=== PATIENT | male | born 1935 | race Caucasian/White ===

== ENCOUNTER 2016-09-26 15:19 | Outpatient (CLI) | END 2016-09-26 15:20 | disposition home or self-care (01) ==

== ENCOUNTER 2016-12-30 08:00 | Outpatient (CLI) | payer MEDICARE, MEDICAID | END 2016-12-30 23:59 | disposition home or self-care (01) | DX: E11.621 Type 2 diabetes mellitus with foot ulcer (principal) ==

== ENCOUNTER 2017-03-10 08:00 | Outpatient (CLI) | payer MEDICARE, MEDICAID ==
[2017-03-11 12:27] LABS: HEMOGLOBIN A1C 0.57 g/dL
== END 2017-03-10 08:01 | disposition home or self-care (01) ==
LOC: LAB.S 08:00
PROVIDERS: ATTEND Nurse Practitioner Family
DX: E11.621 Type 2 diabetes mellitus with foot ulcer (principal)
CPT/HCPCS: 36415; 83036

== ENCOUNTER 2017-06-06 17:18 | Outpatient (CLI) | payer MEDICARE, MEDICAID | END 2017-06-06 17:19 | disposition home or self-care (01) | LOC: EMS 17:18 | PROVIDERS: ATTEND Surgery | DX: R53.1 Weakness (principal); F03.91 Unspecified dementia, unspecified severity, with behavioral disturbance | CPT/HCPCS: A0425; A0428 ==

== ENCOUNTER 2017-07-04 08:00 | Outpatient (CLI) | payer MEDICARE, MEDICAID ==
[2017-07-04 11:40] LABS: CALCIUM 8.6 mg/dL (8.5-10.3); CREATININE 3.4 mg/dL (0.6-1.2); POTASSIUM 4.8 mmol/L (3.5-5.0)
== END 2017-07-04 08:01 | disposition home or self-care (01) ==
LOC: LAB 08:00
PROVIDERS: ATTEND Internal Medicine Cardiovascular Disease
DX: I50.9 Heart failure, unspecified (principal)
CPT/HCPCS: 36415; 80048

== ENCOUNTER 2017-07-29 06:04 | Outpatient (CLI) | payer MEDICARE, MEDICAID | END 2017-07-29 06:05 | disposition critical access hospital (66) | LOC: EMS 06:04 | PROVIDERS: ATTEND Surgery | DX: R41.0 Disorientation, unspecified (principal) | CPT/HCPCS: A0425; A0427 ==